=== PATIENT | female | born 1950 | race Caucasian/White ===

== ENCOUNTER 2017-06-25 16:24 | Outpatient (CLI) | payer MEDICARE | END 2017-06-25 16:25 | disposition home or self-care (01) | LOC: BICRAD 16:24 | PROVIDERS: ATTEND Internal Medicine | DX: Z12.31 Encounter for screening mammogram for malignant neoplasm of breast (principal); R05 Cough; F17.200 Nicotine dependence, unspecified, uncomplicated | CPT/HCPCS: 36415; 71046; 77063; 77067; 77080; 80053; 80061; 81003; 81015; 82306; 82550; 84443; 84550; 85025; 85652 ==

== ENCOUNTER 2017-08-14 11:25 | Outpatient (CLI) | payer MEDICARE ==
--- NOTE | 2017-08-21 09:01 | PFT ---
PATIENT HISTORY: HEIGHT: WEIGHT: SMOKER: HOW LONG: PACKS PER DAY PRODUCTIVE COUGH: LUNG DISEASE: PHYSICIAN INTERPRETATION FINAL REPORT: HISTORY OF PRESENT ILLNESS: Paul with a PFT report Patricia Heard The study was done on 08/14/2017. The FEV1 is 2.48 liters which is 112% predicted. Forced vital capacity 2.93 liters which is 95% predicted. Flow volume loop appears normal, except for suboptimal effort. Total lung capacity is within normal limits. Residual volume is low. DLCO was 12.86 which is 69% predicted, but did correct for volume. IMPRESSION: Normal spirometry. The gas exchange is slightly impaired. Dba Manager: JAYDON Psychiatric Assistant: JAYDON LOPEZ
== END 2017-08-14 11:26 | disposition home or self-care (01) ==
LOC: CP 11:25
PROVIDERS: ATTEND Internal Medicine
DX: F17.200 Nicotine dependence, unspecified, uncomplicated (principal); R05 Cough; R06.00 Dyspnea, unspecified
CPT/HCPCS: 94060; 94727; 94729

== ENCOUNTER 2017-08-26 07:59 | Outpatient (CLI) | payer MEDICARE ==
--- NOTE | 2017-08-26 09:59 | CT ---
CT CHEST HIGH RESOLUTION; Date: 08/26/17 HISTORY: J84.10, pulmonary fibrosis. COMPARISON: None. TECHNIQUE: High resolution CT of the chest performed without contrast. Supine and prone imaging performed. FINDINGS: There is some early honeycombing in the periphery of the lower lobes. Mild bronchiectasis in the lowe r lobes. Moderate central lobular and paraseptal emphysema. No significant pericardial effusion. Pulmonary trunk size is normal. No adenopathy. The upper abdomen is unremarkable. IMPRESSION: 1. Early honeycombing in the lower lobes with mild bronchiectasis suggesting pulmonary fibrosis. 2. Moderate background central lobular and paraseptal emphysema. POS: [facility]
== END 2017-08-26 08:00 | disposition home or self-care (01) ==
LOC: CT 07:59
PROVIDERS: ATTEND Internal Medicine Pulmonary Disease
DX: J84.10 Pulmonary fibrosis, unspecified (principal); J84.9 Interstitial pulmonary disease, unspecified; J47.9 Bronchiectasis, uncomplicated; J98.4 Other disorders of lung; J43.2 Centrilobular emphysema
CPT/HCPCS: 71250

== ENCOUNTER 2017-12-27 09:01 | Outpatient (CLI) | payer MEDICARE ==
--- NOTE | 2017-12-27 11:56 | RAD ---
SINGLE CONTRAST UPPER GI: HISTORY: Status post endoscopy. Small mucosal tear was noted. COMPARISON: None. EXPOSURE: 1.5 minutes. 20.099 uGy*^cm2. FINDINGS: Supine prescription clerk lenses radiograph demonstrates a nonspecific bowel gas pattern. Scattered fecal material in a nondistended colon. The patient was administered approximately 60 mL of Gastrografin. Contrast opacifies the stomach. N o evidence of leak or perforation. No evidence of extravasation beyond the confines of the stomach. Small amounts of reflux are noted. Postprocedure supine radiograph and upright radiograph demonstra te contrast to be within the confines o the stomach. Contrast has moved from the stomach into multip le normal-caliber small bowel loops. No evidence of pneumoperitoneum on the upright projection. IMPRESSION: Unremarkable single-contrast upper GI. POS: [facility]
== END 2017-12-27 09:02 | disposition home or self-care (01) ==
LOC: RAD 09:01
PROVIDERS: ATTEND Internal Medicine Gastroenterology
DX: K31.1 Adult hypertrophic pyloric stenosis (principal)
CPT/HCPCS: 74241